=== PATIENT | female | born 1940 | race Caucasian/White ===

== ENCOUNTER 2024-02-26 12:52 | Emergency (ER) | payer OTHER ==
[2024-02-26 13:32] VITALS: RESP 16; BMI 26.4
[2024-02-27 02:19] VITALS: BP 122/60; PULSE 78; TEMP 98.6
== END 2024-02-27 02:19 | disposition home or self-care (01) ==
LOC: JER 12:52
DX: R41.0 Disorientation, unspecified (principal); W06.XXXA Fall from bed, initial encounter; Y92.122 Bedroom in nursing home as the place of occurrence of the external cause
CPT/HCPCS: 70450-TC; 71045-TC-FY; 72125-TC; 72170-TC-FY; 93005; 93010; 99285-25

== ENCOUNTER 2024-05-13 17:40 | Observation (INO) | payer OTHER ==
[2024-05-13 19:16] LABS: BASO % 0.5 % (0-2.0); HEMATOCRIT 41.7 % (32.4-45.2); LYMPH % 28.7 % (8-40); MCH 24.9 pg (25.7-33.7); MCHC 31.3 g/dl (32.0-36.0); MEAN CELL VOLUME 79.6 fl (80-96); MONO % 7.8 % (3.8-10.2); PLATELET COUNT 205 10^3/uL (134-434); RBC 5.23 M/mm3 (3.60-5.2); RDW 18.4 % (11.6-15.6); WHITE BLOOD COUNT 5.8 K/mm3 (4.0-10.0)
[2024-05-13] MEDS: NYSTATIN 100000 UNIT/GM TOPICAL OINTMENT 15 GM TUBE TP ONE (20:32)
[2024-05-13 20:36] LABS: POTASSIUM 4.2 mmol/L (3.5-5.1)
[2024-05-13 20:39] LABS: ALBUMIN 3.2 g/dl (3.4-5.0); BLOOD UREA NITROGEN 39.4 mg/dL (7-18); CALCIUM 8.7 mg/dL (8.5-10.1)
[2024-05-13 20:45] LABS: CREATININE 1.8 mg/dL (0.55-1.3)
[2024-05-13 20:49] LABS: BILIRUBIN,TOTAL 0.2 mg/dL (0.2-1)
[2024-05-13] MEDS ORDERED: ASPIRIN 81 MG CHEWABLE TABLETS ONE (22:04)
[2024-05-13] MEDS: ASPIRIN 81 MG CHEWABLE TABLETS PO ONE (22:13)
[2024-05-14 04:14] VITALS: BMI 26.8
[2024-05-14] MEDS: CARBIDOPA/LEVODOPA 25/100 TABLET (FP) PO SCH (05:41)
[2024-05-14 08:25] LABS: POTASSIUM 3.8 mmol/L (3.5-5.1)
[2024-05-14 08:27] LABS: HEMATOCRIT 38.4 % (32.4-45.2); HEMOGLOBIN 12.2 GM/dL (10.7-15.3); MCH 25.2 pg (25.7-33.7); MCHC 31.8 g/dl (32.0-36.0); MEAN CELL VOLUME 79.2 fl (80-96); MEAN PLT VOLUME 8.9 fl (7.5-11.1); PLATELET COUNT 179 10^3/uL (134-434); RBC 4.85 M/mm3 (3.60-5.2); RDW 17.7 % (11.6-15.6); WHITE BLOOD COUNT 4.3 K/mm3 (4.0-10.0)
[2024-05-14 08:33] LABS: CALCIUM 8.4 mg/dL (8.5-10.1)
[2024-05-14 08:34] LABS: BLOOD UREA NITROGEN 39.6 mg/dL (7-18)
[2024-05-14 08:37] LABS: CREATININE 1.5 mg/dL (0.55-1.3)
[2024-05-14] MEDS: VERAPAMIL HCL 240 MG E.R. TABLET PO SCH (09:25)
[2024-05-14] MEDS: ASPIRIN 325 MG ENTERIC COATED TABLET (FP) PO SCH (09:28)
[2024-05-14] MEDS: PANTOPRAZOLE 40 MG TABLET PO SCH (09:29)
[2024-05-14] MEDS ORDERED: VERAPAMIL HCL 120 MG TABLET PO SCH (10:00)
[2024-05-14] MEDS ORDERED: PANTOPRAZOLE SOD 40 MG SUSPENSION PACKET PO SCH (10:00)
[2024-05-14 16:36] LABS: EPI CELLS >36 /uL (0-25.1); HYALINE CASTS 0 /uL (0-3.1); URINE APPEARANCE CLOUDY; URINE BACTERIA >9,000 /uL (0-1359); URINE BILIRUBIN NEGATIVE (NEGATIVE); URINE COLOR YELLOW; URINE GLUCOSE (UA) NEGATIVE (NEGATIVE); URINE KETONE NEGATIVE (NEGATIVE); URINE LEUK ESTERASE 3+ (NEGATIVE); URINE NITRITE POSITIVE (NEGATIVE); URINE PROTEIN 1+ (NEGATIVE); URINE UROBILINOGEN 0.2 mg/dL (0.2-1.0); URINE WBC 1210 /uL (0-25.8)
[2024-05-14 16:39] LABS: URINE RBC 147 /uL (0-23.9)
[2024-05-14] MEDS: ROSUVASTATIN CA 20 MG TABLET PO SCH (22:20)
[2024-05-14] MEDS: DONEPEZIL HCL 10 MG TABLET (FP) PO SCH (22:21)
[2024-05-15] MEDS: LORazepam 2 MG/ML SDV VIAL IM ONE (00:39)
[2024-05-15] MEDS: amLODIPine BESYLATE 5 MG TABLET (FP) PO SCH (10:37)
[2024-05-15] MEDS: SULFAMETHOXAZOLE/TRIMETHOPRIM 800MG/160MG D.S. TABLET PO SCH (13:29)
[2024-05-15] MEDS: SODIUM CHLORIDE 0.45% 1,000 ML IV SCH (21:40)
[2024-05-16 06:51] VITALS: TEMP 97.9
[2024-05-16 11:56] VITALS: BP 144/78; PULSE 67; RESP 19
== END 2024-05-16 13:22 ==
LOC: JER 17:40 → INTOOBSV 20:16 → JERBED 20:16 → J4S 05-14 02:01
PROVIDERS: ADMIT Student in an Organized Health Care Education/Training Program; ATTEND Student in an Organized Health Care Education/Training Program
PROC: 3E0233Z Introduction of Anti-inflammatory into Muscle, Percutaneous Approach (ICD-10-PCS; principal; 2024-05-13)
DX: I12.9 Hypertensive chronic kidney disease with stage 1 through stage 4 chronic kidney disease, or unspecified chronic kidney disease (principal); N18.9 Chronic kidney disease, unspecified; I11.0 Hypertensive heart disease with heart failure; G20.A1 Parkinson's disease without dyskinesia, without mention of fluctuations; E78.5 Hyperlipidemia, unspecified; R53.1 Weakness; R41.0 Disorientation, unspecified; N17.9 Acute kidney failure, unspecified; Z87.440 Personal history of urinary (tract) infections; F17.200 Nicotine dependence, unspecified, uncomplicated
CPT/HCPCS: 36415; 71045-TC-FY; 76775-TC; 80048; 80053; 81003; 84484; 85025; 85027; 93005; 93010; 96372; 99285-25; G0378

== ENCOUNTER 2024-06-10 15:07 | Inpatient (IN) | payer OTHER ==
[2024-06-10 17:18] LABS: BASO % 0.9 % (0-2.0); EOS % 2.9 % (0-4.5); HEMATOCRIT 45.5 % (32.4-45.2); HEMOGLOBIN 13.9 GM/dL (10.7-15.3); LYMPH % 30.3 % (8-40); MCH 25.8 pg (25.7-33.7); MCHC 30.5 g/dl (32.0-36.0); MEAN CELL VOLUME 84.4 fl (80-96); MEAN PLT VOLUME 9.1 fl (7.5-11.1); NEUT % 56.9 % (42.8-82.8); PLATELET COUNT 81 10^3/uL (134-434); RBC 5.39 M/mm3 (3.60-5.2); RDW 24.7 % (11.6-15.6); WHITE BLOOD COUNT 6.7 K/mm3 (4.0-10.0)
[2024-06-10 17:26] LABS: VENOUS BASE EXCESS 1.2 mmol/L (-2-2); VENOUS O2 SATURATION 63.3 % (70-80); VENOUS PCO2 50.3 mmHg (38-52); VENOUS PH 7.358 (7.310-7.410)
[2024-06-10 17:32] LABS: CHLORIDE 121 mmol/L (98-107); POTASSIUM 4.7 mmol/L (3.5-5.1); SODIUM 157 mmol/L (136-145)
[2024-06-10 17:34] LABS: ALBUMIN 3.2 g/dl (3.4-5.0); ANION GAP 3 mmol/L (4-13); CALCIUM 9.2 mg/dL (8.5-10.1); CO2 33 mmol/L (21-32)
[2024-06-10 17:35] LABS: BLOOD UREA NITROGEN 59.7 mg/dL (7-18); GLUCOSE,RANDOM 62 mg/dL (74-106)
[2024-06-10 17:38] LABS: CREATININE 3.8 mg/dL (0.55-1.3); SGOT/AST 23 U/L (15-37)
[2024-06-10 17:39] LABS: BILIRUBIN,TOTAL 0.5 mg/dL (0.2-1); TOT PROT 7.4 g/dl (6.4-8.2)
[2024-06-10 17:41] LABS: ALK PHOS 72 U/L (45-117)
[2024-06-10 17:48] LABS: EPI CELLS 16 /uL (0-25.1); HYALINE CASTS 1 /uL (0-3.1); PH,URINE 5.5 (5.0-8.0); URINE APPEARANCE TURBID; URINE BACTERIA 3781 /uL (0-1359); URINE BILIRUBIN NEGATIVE (NEGATIVE); URINE COLOR YELLOW; URINE GLUCOSE (UA) NEGATIVE (NEGATIVE); URINE KETONE TRACE (NEGATIVE); URINE LEUK ESTERASE 2+ (NEGATIVE); URINE NITRITE POSITIVE (NEGATIVE); URINE PROTEIN 2+ (NEGATIVE); URINE RBC 102 /uL (0-23.9); URINE WBC 4964 /uL (0-25.8)
[2024-06-10 17:57] LABS: LACTIC ACID 3.3 mmol/L (0.4-2.0)
[2024-06-10 17:57] LABS: SGPT/ALT < 6 U/L (13-61)
[2024-06-10] MEDS ORDERED: HALOPERIDOL LACTATE 5 MG/ML ONE (18:07)
[2024-06-10] MEDS: HALOPERIDOL LACTATE 5 MG/ML IM ONE (18:14)
[2024-06-10 18:35] LABS: ANISOCYTOSIS 2+; MACROCYTOSIS 0
[2024-06-10] MEDS ORDERED: MIDAZOLAM HCL 2 MG/2 ML SINGLE DOSE VIAL ONE (18:37)
[2024-06-10] MEDS ORDERED: CEFTRIAXONE 1 GM/50 ML BAG ONE (18:37)
[2024-06-10] MEDS ORDERED: ASPIRIN 300 MG SUPP.RECT RC ONE (18:38)
[2024-06-10] MEDS: CEFTRIAXONE 1 GM in DEXTROSE 5%-WATER - 100 ML IVPB ONE (19:03)
[2024-06-10] MEDS: SODIUM CHLORIDE 0.45% 1,000 ML IV SCH (19:03)
[2024-06-10] MEDS: MIDAZOLAM HCL 2 MG/2 ML SINGLE DOSE VIAL IVPUSH ONE (19:03)
[2024-06-10] MEDS: ASPIRIN 300 MG SUPP.RECT RC ONE (19:03)
[2024-06-10 19:23] LABS: YEAST NONE SEEN (NEGATIVE)
[2024-06-11] MEDS: HEPARIN NA (PORCINE) 5,000 UNITS/ML 1ML VIAL SQ SCH (06:01)
[2024-06-11 08:37] LABS: BASO % 0.9 % (0-2.0); EOS % 4.3 % (0-4.5); HEMATOCRIT 42.1 % (32.4-45.2); HEMOGLOBIN 12.7 GM/dL (10.7-15.3); LYMPH % 32.3 % (8-40); MCH 25.6 pg (25.7-33.7); MCHC 30.3 g/dl (32.0-36.0); MEAN CELL VOLUME 84.5 fl (80-96); MONO % 11.4 % (3.8-10.2); NEUT % 51.1 % (42.8-82.8); PLATELET COUNT 57 10^3/uL (134-434); RBC 4.99 M/mm3 (3.60-5.2); RDW 24.2 % (11.6-15.6); WHITE BLOOD COUNT 4.9 K/mm3 (4.0-10.0)
[2024-06-11 09:11] LABS: POTASSIUM 4.5 mmol/L (3.5-5.1)
[2024-06-11 09:18] LABS: ALBUMIN 2.8 g/dl (3.4-5.0); BLOOD UREA NITROGEN 63.8 mg/dL (7-18)
[2024-06-11 09:19] LABS: CREATININE 3.3 mg/dL (0.55-1.3)
[2024-06-11 09:20] LABS: BILIRUBIN,TOTAL 0.4 mg/dL (0.2-1); CALCIUM 8.4 mg/dL (8.5-10.1); TOT PROT 6.3 g/dl (6.4-8.2)
[2024-06-11] MEDS: DIVALPROEX SODIUM 250 MG TABLET E.C. PO SCH (13:44)
[2024-06-11] MEDS: HALOPERIDOL 1 MG TABLET PO PRN (13:44)
[2024-06-11] MEDS: CEFTRIAXONE 1 G/50 ML PREMIX 50 ML IVPB SCH (13:44)
[2024-06-11] MEDS: POLYETHYLENE GLYCOL (HEALTHYLAX) 3350 17 GM PACKET PO SCH (14:00)
[2024-06-11] MEDS: DEXTROSE 5%-WATER - 1,000 ML IV SCH (15:48)
[2024-06-12 09:01] LABS: BASO % 0.7 % (0-2.0); EOS % 5.5 % (0-4.5); HEMATOCRIT 39.5 % (32.4-45.2); HEMOGLOBIN 12.7 GM/dL (10.7-15.3); LYMPH % 37.8 % (8-40); MCH 26.2 pg (25.7-33.7); MEAN CELL VOLUME 81.7 fl (80-96); MEAN PLT VOLUME 8.4 fl (7.5-11.1); MONO % 10.9 % (3.8-10.2); NEUT % 45.1 % (42.8-82.8); PLATELET COUNT 47 10^3/uL (134-434); RBC 4.84 M/mm3 (3.60-5.2); WHITE BLOOD COUNT 4.1 K/mm3 (4.0-10.0)
[2024-06-12 09:22] LABS: POTASSIUM 3.9 mmol/L (3.5-5.1)
[2024-06-12 09:24] LABS: CALCIUM 8.4 mg/dL (8.5-10.1)
[2024-06-12 09:25] LABS: ALBUMIN 2.6 g/dl (3.4-5.0); BLOOD UREA NITROGEN 43.2 mg/dL (7-18)
[2024-06-12 09:29] LABS: BILIRUBIN,TOTAL 0.4 mg/dL (0.2-1); TOT PROT 5.9 g/dl (6.4-8.2)
[2024-06-12] MEDS: HALOPERIDOL LACTATE 5 MG/ML IM SCH (10:45)
[2024-06-12] MEDS: TIGECYCLINE 100 MG in DEXTROSE 5%-WATER - 100 ML IVPB ONE (15:57)
[2024-06-13 09:50] LABS: BLOOD UREA NITROGEN 40.7 mg/dL (7-18); CALCIUM 8.3 mg/dL (8.5-10.1)
[2024-06-13 09:54] LABS: CREATININE 1.6 mg/dL (0.55-1.3)
[2024-06-13] MEDS: TIGECYCLINE 50 MG in DEXTROSE 5%-WATER - 100 ML IVPB SCH (10:17)
[2024-06-13 21:58] VITALS: BMI 20.6
[2024-06-16 04:54] VITALS: PULSE 82
[2024-06-16 06:35] VITALS: BP 122/84; RESP 86; TEMP 97.4
== END 2024-06-16 18:27 | DRG 281 ==
LOC: JER 15:07 → JERBED 19:23 → J4W 23:42
PROVIDERS: ADMIT Internal Medicine; ATTEND Family Medicine
DX: I21.4 Non-ST elevation (NSTEMI) myocardial infarction (principal); E87.0 Hyperosmolality and hypernatremia; N39.0 Urinary tract infection, site not specified; Z16.12 Extended spectrum beta lactamase (ESBL) resistance; J44.9 Chronic obstructive pulmonary disease, unspecified; I50.9 Heart failure, unspecified; F03.90 Unspecified dementia, unspecified severity, without behavioral disturbance, psychotic disturbance, mood disturbance, and anxiety; E78.5 Hyperlipidemia, unspecified; R09.02 Hypoxemia; G93.9 Disorder of brain, unspecified; Z68.20 Body mass index [BMI] 20.0-20.9, adult; R62.7 Adult failure to thrive
CPT/HCPCS: 0241U-QW; 36415; 71045-TC-FY; 76775-TC; 80048; 80053; 81003; 82550; 82553; 82803; 82962; 83605; 83930; 84484; 85025; 87040; 87086; 87186; 93005; 93010; 97162-GP; 99285-25; J1644; J3243